=== PATIENT | female | born 1995 | race Caucasian/White ===

== ENCOUNTER 2018-04-28 11:11 | Emergency (ER) | payer MEDICAID ==
[2018-04-28] MEDS ORDERED: NS 1,000 ML IV ONE (12:20)
--- NOTE | 2018-04-28 12:20 | EDPHY ---
General Time Seen by Provider: 04/28/18 12:14 Narrative: CHIEF COMPLAINT: Pelvic pain HISTORY OF PRESENT ILLNESS: Patient presents provided with complaints of pelvic pain. Months that is 2 weeks ago. Location is in the lower pelvis, right greater than left. Duration is intermittent. Symptoms, going clinically. No current pain at this time but she does have some pain this morning. No predictable modifying factors. Described as mild to moderate. She has concern because she does have a positive test on Saturday. Last menstrual period was March 19. She is a with current positive test. She has no vaginal bleeding or discharge. She was examined at a women's clinic last Saturday with a reportedly normal pelvic exam. No ultrasound performed. She has no other associated complaints or modifying factors. REVIEW OF SYSTEMS: 10 systems were reviewed and negative with the exception of the elements mentioned in the history of present illness. PCP: [facility] SPECIAL[facility]: [facility] PAST MEDICAL HISTORY: Uncomplicated. No medication PAST SURGICAL HISTORY: No surgical history SOCIAL HISTORY: Nonsmoker. FAMILY HISTORY: Noncontributory EXAMINATION: Vitals: Triage VS reviewed General Appearance: Alert, no distress. Well appearing. Head: normocephalic, atraumatic Eyes: Pupils equal and round, no conjunctival pallor or injection ENT, Mouth: Mucous membranes moist Neck: Normal inspection, supple, non-tender Respiratory: Lungs are clear to auscultation Cardiovascular: Regular rate and rhythm Gastrointestinal: Abdomen is soft and nontender no tympany rigidity. No guarding. No CVA tenderness. Bowel sounds present all 4 quadrants. : Pelvic exam deferred. Back: non-tender, no bony abnormalities Skin: Warm and dry, no rash Extremities: Nontender, no pedal edema Psychiatric: Mood and affect normal DIFFERENTIAL DIAGNOSES: Including but not limited to ectopic , ovarian cysts, pelvic pain in , miscarriage, heterotopic MDM: 12:20 p.m. Lower abdominal pelvic pain with reportedly positive test on Saturday. She has no pain at this time. She has had no vaginal bleeding or discharge. She had no complications with previous . She is approximately 6-7 weeks by LMP. Laboratory studies ordered. Ultrasound ordered to rule out ectopic. 2:20 p.m. Notified by radiologist. We discussed the ultrasound findings as documented. No definite evidence of ectopic at this time but unable to completely rule out given the early presentation. Patient has been re-evaluated. We discussed her low quantitative HCG. We discuss her ultrasound findings. She currently has no pain of any kind at this time. Her vital signs are within normal limits. We discussed the need for strict and close follow-up this week. We discussed repeat HCG in 48-72 hours. We discussed need to be seen by Ob physician later this week with repeat ultrasound in 1-2 weeks. She has an OB physician that she can see this week. We discussed strict ED precautions for any return of any pain of any kind, lightheadedness, dizziness or chest pain. We also discussed returning here for any vaginal bleeding of any kind. She agrees to proceed with this pain. She is discharged home stable condition. SUPERVISION: Patient was independently examined, but I discussed the case with my secondary supervising physician Dr. Tenorio CONSULTATION: None - Diagnostics Imaging Results: Imaging Impressions Obstetrics Ultrasound 04/28/18 12:21 Impression: 1. A definite intrauterine gestational sac is not identified and therefore an ectopic cannot be excluded. 2. Right ovarian 2 x 1.7 x 1.7 cm complex cyst may represent corpus luteum cyst , although an ectopic cannot be excluded. 3. Minimal free fluid in the pelvis. 4. Minimal free fluid in the endocervical canal. Findings and recommendations discussed with Emergency Department physician, Andrew Dubon PA-C at 1413 hour, 04/28/2018. Final report concurs with initial preliminary interpretation. - History Smoking Status: Never smoked - Objective Vital Signs: Initial Vital Signs Temperature (C) 98.2 F 04/28/18 11:20 Heart Rate 96 04/28/18 11:20 Respiratory Rate 16 04/28/18 11:20 Blood Pressure 127/80 H 04/28/18 11:20 O2 Sat (%) 98 04/28/18 11:20 O2 Delivery Mode Room Air Allergies/Adverse Reactions: No Known Allergies Allergy (Unverified 04/28/18 11:23) Home Medications: Medication Instructions Recorded NK [No Known Home Meds] 04/28/18 Laboratory Results: Laboratory Results 04/28/18 11:40 04/28/18 11:40 04/28/18 04/28/18 11:40 11:40 WBC 7.07 10^3/uL 10^3/uL (3.80-9.50) RBC 4.98 10^6/uL 10^6/uL (4.18-5.33) Hgb 15.4 g/dL g/dL (12.6-16.3) Hct 44.6 % % (38.0-47.0) MCV 89.6 fL fL (81.5-99.8) MCH 30.9 pg pg (27.9-34.1) MCHC 34.5 g/dL g/dL (32.4-36.7) RDW 11.8 % % (11.5-15.2) Plt Count 395 10^3/uL 10^3/uL (150-400) MPV 9.7 fL fL (8.7-11.7) Neut % (Auto) 56.6 % % (39.3-74.2) Lymph % (Auto) 36.1 % % (15.0-45.0) Lewis % (Auto) 5.0 % % (4.5-13.0) Eos % (Auto) 1.8 % % (0.6-7.6) Baso % (Auto) 0.4 % % (0.3-1.7) Nucleat RBC Rel Count 0.0 % % (0.0-0.2) Absolute Neuts (auto) 4.00 10^3/uL 10^3/uL (1.70-6.50) Absolute Lymphs (auto) 2.55 10^3/uL 10^3/uL (1.00-3.00) Absolute Monos (auto) 0.35 10^3/uL 10^3/uL (0.30-0.80) Absolute Eos (auto) 0.13 10^3/uL 10^3/uL (0.03-0.40) Absolute Basos (auto) 0.03 10^3/uL 10^3/uL (0.02-0.10) Absolute Nucleated RBC 0.00 10^3/uL 10^3/uL (0-0.01) Immature Gran % 0.1 % % (0.0-1.1) Immature Gran # 0.01 10^3/uL 10^3/uL (0.00-0.10) Sodium 139 mEq/L mEq/L (135-145) Potassium 4.3 mEq/L mEq/L (3.3-5.0) Chloride 108 mEq/L mEq/L (97-110) Carbon Dioxide 19 mEq/l L mEq/l (22-31) Anion Gap 12 mEq/L mEq/L (6-14) BUN 13 mg/dL mg/dL (7-23) Creatinine 0.7 mg/dL mg/dL (0.6-1.0) Estimated GFR > 60 Glucose 83 mg/dL mg/dL (70-100) Calcium 9.2 mg/dL mg/dL (8.5-10.4) Lipase 95 IU/L IU/L (23-300) Beta HCG, Quant 123.78 mIU/mL H mIU/mL (0.00-4.83) Medications Given: Discontinued Medications Sodium Chloride (Ns) 1,000 mls @ 0 mls/hr IV EDNOW ONE; Wide Open PRN Reason: Protocol Stop: 04/28/18 12:21 Last Admin: 04/28/18 12:33 Dose: 1,000 mls Departure - Departure Disposition: Home, Routine, Self-Care Clinical Impression: Positive test, Pelvic pain during Condition: Good Instructions: Pelvic Pain in Women (ED) Additional Instructions: 1. Contact inspector final assembly conveyor line for repeat evaluation in 48 hr to check your HCG quantitative level. 2. You will need a repeat ultrasound in 1 week 3. Return to emergency department for any constant pain, vaginal bleeding or discharge, lightheadedness, dizziness or fever Referrals: Kristin Jarvis MD [Medical Doctor] - As per Instructions Physician,Emergency DeptMD [Medical Doctor] - As per Instructions Stand Alone Forms: Work Excuse
[2018-04-28 12:28] LABS: PLATELET COUNT 395 10^3/uL (150-400)
[2018-04-28 13:50] VITALS: BP 110/66
== END 2018-04-28 14:41 | disposition home or self-care (01) ==
DX: O99.89 Other specified diseases and conditions complicating pregnancy, childbirth and the puerperium (principal); R10.2 Pelvic and perineal pain; E86.9 Volume depletion, unspecified; Z3A.00 Weeks of gestation of pregnancy not specified

== ENCOUNTER 2018-05-01 21:05 | Emergency (ER) | payer MEDICAID ==
[2018-05-01] MEDS ORDERED: ONDANSETRON 4 MG/2 ML VIAL IVP ONE (21:16)
[2018-05-01] MEDS ORDERED: fentaNYL 100 MCG/2 ML INJ IVP ONE (21:16)
[2018-05-01] MEDS ORDERED: NS 1,000 ML IV ONE (21:16)
[2018-05-01] MEDS ORDERED: KETOROLAC 15 MG/1 ML SDV IVP ONE (23:35)
--- NOTE | 2018-05-01 23:38 | EDPHY ---
H & P Stated Complaint: Concerned for ectopic , bleeding, increasing abd pain Time Seen by Provider: 05/01/18 21:13 HPI/ROS: CHIEF COMPLAINT: Pelvic pain and vaginal bleeding HISTORY OF PRESENT ILLNESS: 22-year-old female who is been seen in the emergency department on April 28 for pelvic pain he. Patient had had a pot the test several days previously. Ultrasound on April 28 demonstrated no IUP and no signs of ectopic although the patient did have a 2 cm right ovarian cyst. At that time her quantitative HCG was 123. She followed up and had a repeat quant done 2 days later which was 59. Today the patient continued to have pelvic pain but also developed vaginal bleeding. Patient is AB 0. She reports prior to this she was not using any form of control other than condoms and using Plan B when she had unprotected intercourse. No history of IUD use. History of chlamydia in the remote past which was treated. No lightheadedness, dizziness, or fainting. Patient reports the bleeding was mild. No tissue. REVIEW OF SYSTEMS: A comprehensive 10 system review of systems was reviewed and is otherwise negative aside from elements mentioned in the history of present illness and medical decision making. PAST MEDICAL HISTORY: Patient denies. . Last menstrual cycle was March 19. SOCIAL HISTORY: Here with her partner. VITAL SIGNS Reviewed by me. GENERAL: Well-developed, well-nourished, resting comfortably in no respiratory distress. HEENT: Atraumatic. Eyes: No icterus, no injection. Mouth: moist mucous membranes. No erythema or lesions. Neck: supple with no adenopathy. LUNGS: Clear to auscultation bilaterally, no wheezes, rhonchi or rales. CARDIAC: Regular rate and rhythm, no rubs, murmurs or gallops. ABDOMEN: Soft, mild suprapubic tenderness to deep palpation. Some right-sided and left-sided adnexal tenderness, slightly worse on the right. No guarding or rebound. BACK: No CVA tenderness. EXTREMITIES: No trauma. No edema. Range of motion is normal throughout. NEURO: Alert and oriented, grossly nonfocal. SKIN: Warm and dry, no rash. PSYCHIATRIC: Normal mentation, no agitation. - Personal History LMP (Females 10-55): Current Tetanus Diphtheria and Acellular Pertussis (TDAP): No - Medical/Surgical History Hx Asthma: No Hx Chronic Respiratory Disease: No Hx Diabetes: No Hx Cardiac Disease: No Hx Renal Disease: No Hx Cirrhosis: No Hx Alcoholism: No Hx HIV/AIDS: No Hx Splenectomy or Spleen Trauma: No Other PMH: c section - Social History Smoking Status: Never smoked Constitutional: Initial Vital Signs Temperature (C) 36.7 C 05/01/18 21:06 Heart Rate 96 05/01/18 21:06 Respiratory Rate 18 05/01/18 21:06 Blood Pressure 127/94 H 05/01/18 21:06 O2 Sat (%) 97 05/01/18 21:06 O2 Delivery Mode Room Air Allergies/Adverse Reactions: No Known Allergies Allergy (Unverified 05/01/18 21:06) Home Medications: Medication Instructions Recorded NK [No Known Home Meds] 04/28/18 Medical Decision Making - Diagnostics Imaging Results: Imaging Impressions Pelvic/Renal Ultrasound 05/01/18 22:06 Impression: 1. There is no evidence of an intrauterine , and as a result an ectopic cannot be excluded. 2. There is a probable 1.7 cm right ovarian corpus luteum cyst, marginally smaller than 3 days ago. There is no evidence of torsion or free fluid. Findings were discussed with Chasity Schulz MD at 23:30, on 05/01/2018. ED Course/Re-evaluation: Quantitative HCG today is 49. Patient is O-positive. Ultrasound was obtained tonight to evaluate the status of the ovarian cyst. It is very slightly smaller. There is good flow to the ovary. I discussed with the patient the results of the ultrasound and explained that this is a nonviable . She will follow up with her primary physician to be sure that her quant has fallen to 0. She was also advised that if she were to have worsening pain, lightheadedness, bleeding, fainting, or other concerns she should return to the emergency department. Otherwise she should use ibuprofen as needed for pain Differential Diagnosis: The differential diagnosis for the patient's abdominal pain was considered including but not limited to ovarian cyst, pelvic inflammatory disease, ovarian torsion, urinary tract infection, related complications, and appendicitis. - Data Points Laboratory Results: 05/01/18 05/01/18 05/01/18 22:08 21:40 21:40 Beta HCG, Quant 41.64 mIU/mL H mIU/mL (0.00-4.83) Urine Color YELLOW Urine Appearance CLEAR Urine pH 5.0 (5.0-7.5) Ur Specific [place] 1.023 (1.002-1.030) Urine Protein NEGATIVE (NEGATIVE) Urine Ketones NEGATIVE (NEGATIVE) Urine Blood 3+ H (NEGATIVE) Urine Nitrate NEGATIVE (NEGATIVE) Urine Bilirubin NEGATIVE (NEGATIVE) Urine Urobilinogen 4.0 EU H EU (0.2-1.0) Ur Leukocyte Esterase NEGATIVE (NEGATIVE) Urine RBC 50-182 /hpf H /hpf (0-3) Urine WBC 1-3 /hpf /hpf (0-3) Ur Epithelial Cells NONE SEEN /lpf /lpf (NONE-1+) Urine Mucus TRACE /lpf /lpf (NONE-1+) Urine Glucose NEGATIVE (NEGATIVE) Patient ABO/Rh O POSITIVE Medications Given: Discontinued Medications Fentanyl (Sublimaze) 50 mcg IVP EDNOW ONE Stop: 05/01/18 21:17 Last Admin: 05/01/18 21:40 Dose: 50 mcg Sodium Chloride (Ns) 1,000 mls @ 0 mls/hr IV ONCE ONE; Wide Open PRN Reason: Protocol Stop: 05/01/18 21:17 Last Admin: 05/01/18 21:40 Dose: 1,000 mls Ketorolac Tromethamine (Toradol) 15 mg IVP EDNOW ONE Stop: 05/01/18 23:36 Last Admin: 05/01/18 23:43 Dose: 15 mg Ondansetron HCl (Zofran) 4 mg IVP EDNOW ONE Stop: 05/01/18 21:17 Last Admin: 05/01/18 21:40 Dose: 4 mg Departure - Departure Disposition: Home, Routine, Self-Care Clinical Impression: Bleeding in early , Non-viable Ovarian cyst Qualifiers: Laterality: right Qualified Code(s): N83.201 - Unspecified ovarian cyst, right side Condition: Good Instructions: Ovarian Cyst (ED), Pelvic Pain (ED) Additional Instructions: Your level of the hormone has been decreasing steadily. This tells me that you have had a failed . Most likely the has been miscarried. However, you should be seen by her primary care physician to ensure that the level falls to 0. You have a ovarian cyst on your ultrasound. This may be the cause of your pain. I recommend you take ibuprofen 400 mg every 6-8 hours for pain. Return to the emergency department or seek care urgently if you develop worsening pain, lightheadedness, dizziness, vomiting, increased bleeding, or other concerns. Referrals: NONE *PRIMARY CARE P,. [Primary Care Provider] - As per Instructions Shae Avila MD [Medical Doctor] - As per Instructions
[2018-05-01 23:52] VITALS: BP 124/71
== END 2018-05-01 23:51 | disposition home or self-care (01) ==
DX: O20.9 Hemorrhage in early pregnancy, unspecified (principal)
CPT/HCPCS: 96374; J1885; J2405; J3010